=== PATIENT | female | born 1960 | race Caucasian/White ===

== ENCOUNTER 2020-11-11 02:59 | Emergency (ER) | payer MEDICAID ==
[~2020-11-11] VITALS: Ht 152.4 cm; Wt 80.4 kg
[2020-11-11 03:11] VITALS: Ht 152.4 cm; Wt 80.4 kg
[2020-11-11 04:29] LABS: CALCIUM 8.7 mg/dL (8.5-10.1); CARBON DIOXIDE 28.8 mmol/L (21-32); CHLORIDE SERUM 100 mmol/L (98-107); CREATININE SERUM 0.8 mg/dL (0.6-1.0); GFR1 > 60 mL/min; GLUCOSE SERUM 225 mg/dL (74-106); POTASSIUM SERUM 3.7 mmol/L (3.5-5.1); SODIUM SERUM 139 mmol/L (136-145)
[2020-11-11 04:34] LABS: ALBUMIN 3.9 g/dL (3.4-5.0); ALKALINE PHOSPHATASE 119 U/L (46-116); ALT/SGPT 32 U/L (14-59); AST/SGOT 9 U/L (15-37); BILIRUBIN TOTAL 0.68 mg/dL (0.20-1.00); LIPASE 149 IU/L (73-393); TOTAL PROTEIN, SERUM 8.1 g/dL (6.4-8.2)
[2020-11-11 05:16] LABS: microscopic required? YES; urine erythrocyte 3+ (NEGATIVE)
[2020-11-11 05:20] LABS: BASOPHIL % 0.3 % (0.2-1.3); PLATELET COUNT 211 x10^3mcL (179-408); RED CELL DISTRIBUTION WIDTH 12.6 % (12.3-17.7)
[2020-11-11 06:14] VITALS: BP 163/80
== END 2020-11-11 06:14 | disposition home or self-care (01) ==
LOC: ED 02:59
PROVIDERS: Emergency Medicine
DX: N12 Tubulo-interstitial nephritis, not specified as acute or chronic (principal)
CPT/HCPCS: J0696; J1885

== ENCOUNTER 2020-11-24 02:04 | Emergency (ER) | payer MEDICAID ==
[~2020-11-24] VITALS: Ht 152.4 cm; Wt 80.5 kg
[2020-11-24 02:13] VITALS: Ht 152.4 cm; Wt 80.5 kg
[2020-11-24 03:51] VITALS: BP 173/68
== END 2020-11-24 03:51 | disposition home or self-care (01) ==
LOC: ED 02:04
DX: T78.1XXA Other adverse food reactions, not elsewhere classified, initial encounter (principal); X58.XXXA Exposure to other specified factors, initial encounter
CPT/HCPCS: J1200; J2930; J3490